=== PATIENT | male | born 1965 | race Caucasian/White ===

== ENCOUNTER 2021-05-09 16:42 | Emergency (ER) | payer SELFPAY ==
--- NOTE | ~2021-05-09 | XR_ITS ---
EXAMINATION: Third left finger CLINICAL INFORMATION: Pain. Injury. COMPARISON: None TECHNIQUE: 3 views of the left third digit.. FINDINGS: There is soft tissue swelling of the third finger in the area of the middle phalange particularly at the radial side of the finger. No fracture. No dislocation. No radiopaque foreign body. No air in the soft tissue. XR/XR finger LT min 2V IMPRESSION: There is soft tissue swelling of the middle finger. No acute osseous abnormality.
[2021-05-09 16:46] VITALS: BP 122/81; PULSE 114; RESP 18; TEMP 37.1; O2SAT 97; BMI 20.3
--- NOTE | 2021-05-09 17:14 | ED_ITS ---
HPI - Extremity Problem General Chief complaint: Extremity Injury, Upper Stated complaint: finger infection Time Seen by Provider: 05/09/21 17:11 Source: patient Mode of arrival: ambulatory Limitations: no limitations History of Present Illness HPI Narrative: 55-year-old male left head 3rd finger redness and swelling. Patient states he had a blister day for 2 weeks and he popped it couple days ago and then started having some swelling and redness. Patient states complete range of motion of finger. Patient states no fever or chills. Patient denies any green yellow pus discharge or foul odor. Patient stated was mild serosanguineous fluid but that resolved denies injecting any IV drug use. Related Data Previous Rx's Medication Instructions Recorded cephalexin 500 mg capsule 500 mg PO QID 7 Days #28 cap 05/09/21 doxycycline hyclate 100 mg capsule 100 mg PO BID 7 Days #14 cap 05/09/21 naproxen 500 mg tablet 500 mg PO BID PRN 10 Days #20 tab 05/09/21 Allergies Allergy/AdvReac Type Severity Reaction Status Date / Time No Known Allergies Allergy Verified 05/09/21 16:45 Review of Systems Review of Systems: Infected finger. Yes all other systems are reviewed and are negative [facility] Social History Social History Advance Directives: No Advance Directives Information Provided: No Physical Exam Vital Signs: Vital Signs: Last Vital Signs Temp 98.8 F 05/09/21 16:46 Pulse 114 H 05/09/21 16:46 Resp 18 05/09/21 16:46 BP 122/81 05/09/21 16:46 Pulse Ox 97 05/09/21 16:46 BMI result Body Mass Index 20.3 Const: General: cooperative, healthy appearing, comfortable, no acute distress, well developed, alert and awake Orientation/consciousness: oriented to person and oriented to place HENMT: Head: Yes normal to inspection, Yes No palpable skull fracture present, Yes normocephalic and Yes atraumatic Eyes: General: appearance normal, both eyes and all related structures Neck: Neck: Yes normal visual inspection, Yes full ROM, Yes no lymphadenopathy, Yes no meningeal signs, Yes trachea midline, Yes supple, No anterior neck swelling and No tender Chest: Chest palpation & inspection: normal inspection of the chest and normal palpation of entire chest wall Resp: Effort & Inspection: normal respiratory effort and able to speak in complete sentences Auscultation: clear to auscultation bilaterally Cardio: Jugular venous distension: no JVD Heart sounds: S1 normal heart sound present and S2 normal heart sound present GI: Inspection: Yes normal to inspection and No abdominal wall ecchymosis Palpation (GI): Soft to palpation, not firm, nontender and no guarding : General: No CVA tenderness and Yes no CVA tenderness Back/Spine/Pelvis: Back: no CVA tenderness, No CVA tenderness and No back tenderness Skin: Other: Left 3rd finger cellulitis General skin exam: no rashes or lesions noted and elasticity normal Neuro: General: oriented to person, oriented to place and no meningeal signs Extrem: Other: General: Yes normal to inspection and Yes full ROM Hand/finger images: 1. Positive for erythema, warmth, and swelling. Negative for any fluctuance, mass, or pus discharge.. Patient has complete range of motion of finger. Negative for signs of tenosynovitis. Capillary refill is intact. Neuro exam is intact. 2. Opening negative for any active pus discharge. Negative for fluctuance or mass. Rest of extremity normal. Motor/neuro/vascular exam intact. Psych: Appearance: grossly normal, well kempt and not disheveled Course Course Course Narrative: History physical exam does not indicate tenosynovitis or abscess. Was sent for x-ray to rule out osteomelitis Reevaluation(s) Reevaluation #1: X-ray negative for osteomyelitis. No indication for instances or drainage. Patient to be discharged Time: 18:23 MDM - Extremity (Nontraumatic) MDM Narrative Medical decision making narrative: Cellulitis Discharge Plan Discharge Clinical Impression: Cellulitis of finger Patient Disposition: Home, Self-Care Instructions: Cellulitis (DC) Additional Instructions: You will be discharged with antibiotics. Recommend warm compress 4 times a day for 15 minutes on finger. Return to ED for worsening swelling, inability to move finger, pus discharge, foul odor, fever, chills, or any other concerning symptoms. Follow up with primary care provider. Prescriptions: New naproxen 500 mg tablet 500 mg PO BID PRN (Reason: pain) 10 Days Qty: 20 0RF cephalexin 500 mg capsule 500 mg PO QID 7 Days Qty: 28 0RF doxycycline hyclate 100 mg capsule 100 mg PO BID 7 Days Qty: 14 0RF Stand Alone Forms: Work/School Release Print Language: Russian
== END 2021-05-09 18:43 | disposition home or self-care (01) ==
PROVIDERS: Emergency Provider Internal Medicine
DX: L03.012 Cellulitis of left finger (principal)
CPT/HCPCS: 73140; 99283